=== PATIENT | female | born 1990 | race Caucasian/White ===

== ENCOUNTER 2020-08-19 11:34 | Outpatient (CLI) | payer BC, SELFPAY ==
--- NOTE | ~2020-08-19 | MMUS_ITS ---
EXAMINATION: MM diagnostic aundrea BI w manuel, US breast LT limited HISTORY: Palpable left breast lump. TECHNIQUE: Additional 3-D tomosynthesis images of the breasts were performed and synthetic 2-D images were generated. CAD analysis was submitted and interpreted. High resolution limited left breast ultr asound was performed. COMPARISON: No prior studies for comparison. BREAST PARENCHYMAL COMPOSITION: Breast composed of scattered areas of fibroglandular density FINDINGS: MAMMOGRAPHIC FINDINGS: There are no suspicious masses, calcifications or architectural distortion in either breast to sugges t malignancy. ULTRASOUND: Targeted left breast ultrasound performed in the area of palpable concern. Normal heterogeneous echot exture without focal solid or cystic mass. IMPRESSION: 1. No evidence for malignancy in either breast. 2. Routine yearly screening mammogram and regular clinical breast examination are recommended. BI-RADS Category 1: Negative Reviewed, dictated and finalized at location A. INE DRILLER IMPRESSION: 1. No evidence for malignancy in either breast. 2. Routine yearly screening mammogram and regular clinical breast examination a re recommended. BI-RADS Category 1: Negative
--- NOTE | ~2020-08-19 | US_ITS ---
EXAMINATION: US soft tissue lower back DATE: 08/19/2020 13:15 INDICATION: Mass at the left side of the lower back TECHNIQUE: Multiple grayscale and Doppler ultrasound images of the abdomen were obtained. COMPARISON: None FINDINGS/IMPRESSION: There is a somewhat lobular architecture to the thin linear echogenic septations uptake subcutaneous fat at the region of concern although no single clearly defined lipoma is appreciated. No other abnor mal masses or fluid collections identified. Reviewed, dictated and finalized at location A. [facility]
== END 2020-08-19 11:35 | disposition home or self-care (01) ==
DX: N63.20 Unspecified lump in the left breast, unspecified quadrant (principal); R22.2 Localized swelling, mass and lump, trunk
CPT/HCPCS: 76642; 76705; 77062; 77066; G0279